=== PATIENT | male | born 1995 | race Hispanic/Latino ===

== ENCOUNTER 2025-08-09 15:01 | Emergency (ER) | payer SELFPAY ==
[2025-08-09] MEDS ORDERED: Bacitracin 1 PK ONE (16:32)
== END 2025-08-09 17:05 | disposition home or self-care (01) ==
LOC: EDBD 15:01 → ERS 15:01
DX: S61.211A Laceration without foreign body of left index finger without damage to nail, initial encounter (principal); W31.2XXA Contact with powered woodworking and forming machines, initial encounter
CPT/HCPCS: 12002; 99283